=== PATIENT | female | born 1995 | race African-American/Black ===

== ENCOUNTER 2017-12-31 22:12 | Emergency (ER) | payer BC ==
[~2017-12-31] VITALS: Ht 165.1 cm; Wt 81.8 kg
[~2017-12-31 22:12] MED LIST: MIRENA52 MG; NORCO 325 MG-51 TAB PO; OXY IR5 MG; PERCOCET 325 MG1 TA2 PO; PROAIR HFA0.09 MG/AC; ULTRAM 50MG TAB50 MG PO
[2017-12-31 22:14] VITALS: BP 141/97; TEMP 98.8
[2017-12-31] MEDS ORDERED: MIRENA52 MG (22:18)
[2017-12-31] MEDS ORDERED: TYLENOL 500MG500 MG PO (22:24)
[2017-12-31] MEDS ORDERED: TYLENOL 325MG325 MG PO (22:24)
[2017-12-31 22:43] VITALS: PULSE 66
== END 2017-12-31 22:43 | disposition home or self-care (01) ==
LOC: COL.ER 22:12
DX: K02.9 Dental caries, unspecified (principal)

== ENCOUNTER 2021-09-28 13:09 | Emergency (ER) | payer OTHER ==
[~2021-09-28] VITALS: Ht 165.1 cm; Wt 90.9 kg
[~2021-09-28 13:09] MED LIST changes: +TYLENOL 325MG325 MG PO; +TYLENOL 500MG500 MG PO
[2021-09-28 13:24] VITALS: TEMP 98.2
[2021-09-28 14:23] VITALS: BP 116/81; PULSE 88
== END 2021-09-28 14:23 | disposition home or self-care (01) ==
LOC: COL.ER 13:09
DX: S16.1XXA Strain of muscle, fascia and tendon at neck level, initial encounter (principal); V49.40XA Driver injured in collision with unspecified motor vehicles in traffic accident, initial encounter; Y92.410 Unspecified street and highway as the place of occurrence of the external cause